=== PATIENT | female | born 1955 | race Caucasian/White ===

== ENCOUNTER → 2016-07-16 | Outpatient (CLI) | payer MEDICARE ==
--- OUTSIDE RECORDS SUMMARY | 2016-07-16 13:48 | XMS REPORT | Continuity of Care Document ---
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 Medications No medication information available. Social History No social history. Hospital Discharge Instructions No hospital discharge instructions. Plan of Care Discharge Date 03/20/16 7:02am Prescriptions See Medication Section Functional Status No functional status results. Allergies, Adverse Reactions, Alerts No allergy information available. Immunizations No immunization records. Vital Signs No known vital signs results. Results No known relevant diagnostic tests, laboratory data and/or discharge summary. Procedures No known history of procedures. Encounters Encounter Location Arrival/Admit Date Discharge/Depart Date Attending Provider Departed Clinic [facility] 03/19/16 8:25pm 03/20/16 7: 02am LALO ROONEY DO
--- NOTE | 2016-07-16 14:54 | Diagnostic Imaging Report ---
INDICATION: Restrictive lung disease and dyspnea. PA and lateral views of the chest are obtained. No previous study is available at this time for comparison. FINDINGS: Heart size and pulmonary vascularity are within normal limits. There is internal cardiac defibrillator device with battery pack in the left anterior chest wall. Linear density projected over the right heart border may be residual from previous pacemaker as well. There is no evidence of pneumothorax, consolidation or significant pleural fluid. IMPRESSION: Postoperative changes in the mediastinum without acute abnormality detected. Dictated by: Dictated on workstation # [id number]
== END ==
LOC: RAD 13:42
PROVIDERS: ATTEND Nurse Practitioner Family
DX: J98.4 Other disorders of lung (principal); G47.34 Idiopathic sleep related nonobstructive alveolar hypoventilation; R06.00 Dyspnea, unspecified
CPT/HCPCS: 71020

== ENCOUNTER → 2017-04-22 | Outpatient (CLI) | payer MEDICARE ==
[~2017-04-22] MED LIST: CEFD300C3 PO
[2017-04-22 16:05] LABS: BASOPHILS # (AUTO) 0.1 10^3/uL (0.0-0.1); BASOPHILS % (AUTO) 1 % (0-10); EOSINOPHILS # (AUTO) 0.3 10^3/uL (0.0-0.3); EOSINOPHILS % (AUTO) 2 % (0-10); LYMPHOCYTES % (AUTO) 15 % (12-44); MEAN CORPUSCULAR HEMOGLOBIN 28 PG (25-34); MEAN CORPUSCULAR HGB CONC 32 G/DL (32-36); MEAN CORPUSCULAR VOLUME 89 FL (80-99); MEAN PLATELET VOLUME 10.1 FL (7.4-10.4); MONOCYTES # (AUTO) 1.3 X 10^3 (0.0-1.0); MONOCYTES % (AUTO) 10 % (0-12); NEUTROPHILS # (AUTO) 9.9 X 10^3 (1.8-7.8); NEUTROPHILS % (AUTO) 73 % (42-75); PLATELET COUNT 231 10^3/uL (130-400); RED CELL DISTRIBUTION WIDTH 17.8 % (10.0-14.5); WHITE BLOOD COUNT 13.6 10^3/uL (4.3-11.0)
--- NOTE | 2017-04-22 16:15 | Diagnostic Imaging Report ---
PROCEDURE: CT chest without contrast. TECHNIQUE: Multiple contiguous axial images were obtained through the chest without the use of intravenous contrast. INDICATION: Dyspnea. Cough. FINDINGS: There is a very large right pleural effusion with near complete atelectasis of the right lower lobe and partial atelectasis of the right middle lobe and right upper lobe. Underlying pneumonia is possible. No definitive mass is obviously present. The effusion appears to be homogeneous and is probably simple fluid. There is no left pleural effusion. There is a small to moderate amount of right perihepatic fluid seen, however. The pulmonary artery is 5.7 cm in caliber at the central aspect of the pulmonary trunk level, probably related to pulmonary hypertension or potentially secondary to pulmonary valve stenosis. Correlate with cardiac history. There is a pacemaker with cardiac leads in place. There are pericardial calcifications noted. The heart size is mildly enlarged. There is no significant pericardial effusion. The left lung demonstrates no significant consolidation or mass. The mediastinum demonstrates no mass or significantly enlarged lymph node. No significant lymphadenopathy in the axilla is seen. The osseous structures demonstrate mild syndesmophytes in the mid thoracic spine. IMPRESSION: 1. Very large right pleural effusion is seen with significant atelectasis in the right lung. Underlying infection is possible. No obvious mass on this unenhanced exam. A followup study after thoracentesis would better evaluate the right lung, however. 2. Significant dilatation of the pulmonary trunk. 3. Small to moderate amounts of right perihepatic ascites. Dictated by: Dictated on workstation # [id number]
[2017-04-22 16:17] LABS: ABG BASE EXCESS -0.4 MMOL/L (-2.5-2.5); ABG HCO3 23 MMOL/L (23-27); ABG OXYGEN SATURATION 95 % (94-100); ABG PCO2 34 MMHG (35-45); ABG PH 7.45 (7.37-7.43); ABG PO2 66 MMHG (79-93); ABG TCO2 24.2 MMOL/L (21.0-31.0)
[2017-04-22 16:18] LABS: ALLENS TEST POSITIVE; PATIENT TEMP 98.7
[2017-04-22 16:19] LABS: CALCIUM 9.6 MG/DL (8.5-10.1); CREATININE SERUM 1.57 MG/DL (0.60-1.30); POTASSIUM 4.5 MMOL/L (3.6-5.0)
[2017-04-23 09:19] LABS: BASOPHILS # (AUTO) 0.1 10^3/uL (0.0-0.1); BASOPHILS % (AUTO) 1 % (0-10); EOSINOPHILS # (AUTO) 0.3 10^3/uL (0.0-0.3); EOSINOPHILS % (AUTO) 3 % (0-10); LYMPHOCYTES % (AUTO) 16 % (12-44); MEAN CORPUSCULAR HEMOGLOBIN 28 PG (25-34); MEAN CORPUSCULAR HGB CONC 31 G/DL (32-36); MEAN CORPUSCULAR VOLUME 89 FL (80-99); MEAN PLATELET VOLUME 10.3 FL (7.4-10.4); MONOCYTES # (AUTO) 1.1 X 10^3 (0.0-1.0); MONOCYTES % (AUTO) 9 % (0-12); NEUTROPHILS # (AUTO) 9.3 X 10^3 (1.8-7.8); NEUTROPHILS % (AUTO) 73 % (42-75); PLATELET COUNT 235 10^3/uL (130-400); RED BLOOD COUNT 4.57 10^6/uL (4.35-5.85); RED CELL DISTRIBUTION WIDTH 17.7 % (10.0-14.5); WHITE BLOOD COUNT 12.8 10^3/uL (4.3-11.0)
[2017-04-23 09:41] LABS: GLUCOSE,BODY FLUID 111 MG/DL
[2017-04-23 09:42] LABS: BODY FLUID TRIGLYCERIDES 47 MG/DL; LDH,BODY FLUID 142 U/L
== END ==
LOC: RAD 15:33
PROVIDERS: ATTEND Internal Medicine Critical Care Medicine
DX: J90 Pleural effusion, not elsewhere classified (principal); I28.8 Other diseases of pulmonary vessels
CPT/HCPCS: 36415; 71250; 80048; 82805; 83880; 85025

== ENCOUNTER → 2017-04-23 | Outpatient (CLI) | payer MEDICARE ==
[~2017-04-23] VITALS: Ht 177.8 cm; Wt 79.4 kg
[~2017-04-23] MED LIST changes: +LIDOCAINE 1% INJ 20 ML (XYLOCAINE) VIAL ONE; +LIDOCAINE 4% INJ (XYLOCAINE) 5ML AMP ONE
[2017-04-23 08:05] VITALS: BP 112/69
--- NOTE | 2017-04-23 09:30 | Pulmonary Procedures ---
Pulmonary Procedures Date of Procedure Date of Service: Apr 23, 2017 Procedure: US guided complex right thoracentesis Preop DX: pleural effusion post op DX: Same 2000cc of dark yellow fluid obtained) Complications: None After informed consent obtained US was used to localize pleural fluid. Pt has right pleural effusion. Skin was anesthetized at approximately the 10th ICS posterior axillary line with 8 cc of 1% lidocain. Thoracentesis needle was advanced through the right 10th ICS posterior axillary line. Needle was removed and catheter left in place.2000cc of yellow fluid obtained using vacuum bottles. Catheter was then removed. Pt tolerated procedure well. No complications noted. Post CT scan is pending. Fluid sent to lab for analysis LALO ROONEY DO Apr 23, 2017 09:30
[2017-04-23 09:38] LABS: ALBUMIN 3.9 GM/DL (3.2-4.5); CALCIUM 9.6 MG/DL (8.5-10.1); CREATININE SERUM 1.51 MG/DL (0.60-1.30); POTASSIUM 4.3 MMOL/L (3.6-5.0); TOTAL PROTEIN 7.7 GM/DL (6.4-8.2)
[2017-04-23 10:14] LABS: BILIRUBIN,TOTAL 0.7 MG/DL (0.1-1.0)
--- NOTE | 2017-04-23 10:48 | Diagnostic Imaging Report ---
PROCEDURE: CT chest without contrast. TECHNIQUE: Multiple contiguous axial images were obtained through the chest without the use of intravenous contrast. INDICATION: Post thoracentesis. Exam compared with 04/22/2017. There has been substantial interval reduction in right-sided pleural fluid volume with a small to moderate amount of residual fluid layering dependently to a depth of 3.7 cm. There is airspace disease in the right upper, middle and lower lobes which may reflect reexpansion, pulmonary edema or pneumonia. Some partial atelectasis adjacent to the pleural fluid much improved. No identifiable lung mass. Dilatation of the main pulmonary artery redemonstrated is roughly 5 cm transverse compared to 3.5 cm of the ascending aorta at that same level. The distal pulmonary arterial branches showed fairly abrupt tapering and underlying pulmonary hypertension would be suspected. Vascular patency cannot be addressed owing to the absence of intravascular contrast. The left lung is clear. No appreciable or measurable soft tissue nodularity of the visceral or parietal pleura in the right hemithorax. No identifiable lymphadenopathy. The visualized upper abdomen nonacute. IMPRESSION: New right lung airspace disease suggestive of reexpansion pulmonary edema. Substantial reduction in right pleural fluid volume without pneumothorax and no visualized lung mass or adenopathy. Prominence of the central pulmonary arterial branches with abrupt tapering suggest pulmonary hypertension. Dictated by: Dictated on workstation # [id number]
[2017-04-23 11:28] LABS: BASOPHILS # (AUTO) 0.1 10^3/uL (0.0-0.1); BASOPHILS % (AUTO) 1 % (0-10); EOSINOPHILS # (AUTO) 0.3 10^3/uL (0.0-0.3); EOSINOPHILS % (AUTO) 2 % (0-10); LYMPHOCYTES # (AUTO) 2.2 X 10^3 (1.0-4.0); LYMPHOCYTES % (AUTO) 16 % (12-44); MEAN CORPUSCULAR HEMOGLOBIN 28 PG (25-34); MEAN CORPUSCULAR HGB CONC 32 G/DL (32-36); MEAN CORPUSCULAR VOLUME 88 FL (80-99); MEAN PLATELET VOLUME 10.3 FL (7.4-10.4); MONOCYTES # (AUTO) 0.9 X 10^3 (0.0-1.0); MONOCYTES % (AUTO) 7 % (0-12); NEUTROPHILS # (AUTO) 10.3 X 10^3 (1.8-7.8); NEUTROPHILS % (AUTO) 75 % (42-75); PLATELET COUNT 244 10^3/uL (130-400); RED BLOOD COUNT 4.76 10^6/uL (4.35-5.85); RED CELL DISTRIBUTION WIDTH 17.8 % (10.0-14.5); WHITE BLOOD COUNT 13.8 10^3/uL (4.3-11.0)
== END | disposition home or self-care (01) ==
LOC: SDC 07:40
PROVIDERS: ATTEND Internal Medicine Critical Care Medicine
DX: J90 Pleural effusion, not elsewhere classified (principal); G47.33 Obstructive sleep apnea (adult) (pediatric); J98.4 Other disorders of lung
CPT/HCPCS: 36415; 71250; 80053; 83880; 85025

== ENCOUNTER → 2017-05-01 | Outpatient (CLI) | payer MEDICARE ==
[~2017-05-01] MED LIST changes: -LIDOCAINE 1% INJ 20 ML (XYLOCAINE) VIAL ONE; -LIDOCAINE 4% INJ (XYLOCAINE) 5ML AMP ONE
[2017-05-01 12:06] LABS: BASOPHILS # (AUTO) 0.1 10^3/uL (0.0-0.1); BASOPHILS % (AUTO) 1 % (0-10); EOSINOPHILS # (AUTO) 0.3 10^3/uL (0.0-0.3); EOSINOPHILS % (AUTO) 2 % (0-10); LYMPHOCYTES # (AUTO) 1.6 X 10^3 (1.0-4.0); LYMPHOCYTES % (AUTO) 14 % (12-44); MEAN CORPUSCULAR HEMOGLOBIN 28 PG (25-34); MEAN CORPUSCULAR HGB CONC 32 G/DL (32-36); MEAN CORPUSCULAR VOLUME 88 FL (80-99); MEAN PLATELET VOLUME 10.2 FL (7.4-10.4); MONOCYTES # (AUTO) 0.8 X 10^3 (0.0-1.0); MONOCYTES % (AUTO) 7 % (0-12); NEUTROPHILS # (AUTO) 8.8 X 10^3 (1.8-7.8); NEUTROPHILS % (AUTO) 76 % (42-75); PLATELET COUNT 191 10^3/uL (130-400); RED BLOOD COUNT 4.42 10^6/uL (4.35-5.85); RED CELL DISTRIBUTION WIDTH 17.1 % (10.0-14.5); WHITE BLOOD COUNT 11.6 10^3/uL (4.3-11.0)
[2017-05-01 12:25] LABS: ALBUMIN 3.7 GM/DL (3.2-4.5); BILIRUBIN,TOTAL 0.4 MG/DL (0.1-1.0); CALCIUM 9.6 MG/DL (8.5-10.1); CREATININE SERUM 1.64 MG/DL (0.60-1.30); POTASSIUM 4.5 MMOL/L (3.6-5.0)
[2017-05-01 12:28] LABS: ANISOCYTOSIS SLIGHT; BAND NEUTROPHILS 4 %; LYMPHOCYTES % (MANUAL) 12 %; NEUTROPHILS % (MANUAL) 81 %; POIKILOCYTOSIS SLIGHT
--- NOTE | 2017-05-01 16:57 | Diagnostic Imaging Report ---
PA and lateral views of the chest. COMPARISON: 07/16/2016. INDICATION: Restrictive lung disease. Follow-up after thoracentesis. FINDINGS: There is a large right pleural effusion with atelectasis and consolidation obscuring the mid and lower right lung. The left lung is clear. The heart size is normal. No effusion or pneumothorax. The mediastinum and gabriela appear unremarkable. Pacemaker with three cardiac leads seen. IMPRESSION: Large right pleural fusion with atelectasis and consolidation in the mid and lower right lung. Dictated by: Dictated on workstation # [id number]
== END ==
LOC: RAD 11:29
PROVIDERS: ATTEND Nurse Practitioner Family
DX: J90 Pleural effusion, not elsewhere classified (principal); J18.1 Lobar pneumonia, unspecified organism; J98.4 Other disorders of lung; Z98.890 Other specified postprocedural states
CPT/HCPCS: 36415; 71020; 80053; 83880; 85007; 85027

== ENCOUNTER 2018-10-24 14:26 | Emergency (ER) | payer MEDICARE ==
[~2018-10-24] VITALS: Ht 177.8 cm; Wt 80.7 kg
[2018-10-24 14:56] LABS: HEMATOCRIT 39 % (35-52); HEMOGLOBIN 12.9 G/DL (11.5-16.0); MEAN CORPUSCULAR HEMOGLOBIN 30 PG (25-34); MEAN CORPUSCULAR HGB CONC 33 G/DL (32-36); MEAN CORPUSCULAR VOLUME 89 FL (80-99); MEAN PLATELET VOLUME 11.3 FL (7.4-10.4); PLATELET COUNT 193 10^3/uL (130-400); RED CELL DISTRIBUTION WIDTH 17.3 % (10.0-14.5)
[2018-10-24 14:57] LABS: BASOPHILS # (AUTO) 0.1 10^3/uL (0.0-0.1); BASOPHILS % (AUTO) 1 % (0-10); EOSINOPHILS # (AUTO) 0.3 10^3/uL (0.0-0.3); EOSINOPHILS % (AUTO) 3 % (0-10); LYMPHOCYTES % (AUTO) 23 % (12-44); MONOCYTES # (AUTO) 1.4 X 10^3 (0.0-1.0); MONOCYTES % (AUTO) 11 % (0-12); NEUTROPHILS # (AUTO) 8.2 X 10^3 (1.8-7.8); NEUTROPHILS % (AUTO) 63 % (42-75)
--- NOTE | 2018-10-24 14:57 | ED Syncope ---
General Chief Complaint: Dizziness/Syncope Stated Complaint: SYNCOPE Nursing Triage Note: Brought in by EMS for a syncopal episode. Was walking around [facility] and started to feel hot and nauseous and needed to sit down. Daughter states she "went down" and they helped her to the ground. Denies hitting head. Loss of consciousness was only for a few seconds. EMS reports is diaphoretic and short of breath and in bundle branch block heart rhythm. Was given 4 mg of zofran en route. BS was 332. History of Present Illness Date Seen by Provider: Oct 24, 2018 Time Seen by Provider: 14:40 Initial Comments The patient is a 63-year-old comorbid female with a history of (per pt and family) hypertension, hyperlipidemia, history of prolonged QT with pacemaker/ICD in place, COPD with PRN reliance on supplemental oxygen at home though the patient states she has not used this for awhile, history of prior pleural effusion. Records are not available to round out this patient's medical history due to recent hospital closure. She presents with concern for acute onset of lightheadedness followed by a syncopal episode while she was ambulating down town just prior to arrival. Patient was reportedly in her normal state of health earlier today and was walking with family at the [facility] and suddenly felt hot and nauseated and then began to feel lightheaded and then per her daughter frankly passed out. She did not fall or hit or hurt any other part of her body during the episode and she was caught by her family members and lowered gently to the ground. She was immediately awake and alert afterward and there was no convulsive activity witnessed but afterwards she complained of nausea and persistent lightheadedness and was also reportedly diaphoretic when EMS arrived. Upon my evaluation the patient's vital signs are generally appropriate (2L per NC placed for comfort by EMS enroute) and she is resting comfortably although still appears somewhat sweaty and is nauseated. 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 She specifically denies fevers, vomiting, hematemesis, hematochezia, melena, cough, shortness of breath, chest pain either now or prior to onset of symptoms, abdominal pain, flank pain, back pain, dysuria or hematuria, changes in bowel habits. She is alert and oriented 4. Allergies and Home Medications Allergies Coded Allergies: amiodarone (Verified Allergy, Unknown, 10/24/18) Home Medications Cefdinir 300 Mg Capsule, 300 MG PO BID Prescribed by: ULICES LENZ on 04/23/17 1159 Patient Home Medication List Home Medication List Reviewed: Yes Review of Systems Constitutional: see HPI All Other Systems Reviewed Negative Unless Noted: Yes Past Wugsvqh-Semcpt-Xqpczw Hx Past Med/Social Hx: Reviewed Nursing Past Med/Soc Hx Patient Social History Type Used: Cigarettes Recent Foreign Travel: No Contact w/Someone Who Travel: No Recent Infectious Disease Expo: No Recent Hopitalizations: Yes ([facility] in [place], [place]) Seasonal Allergies Seasonal Allergies: No Past Medical History Hysterectomy COPD Hypertension Reproductive Disorders: No Did You Recieve Any Treatments: Yes Family Medical History Reviewed Nursing Family Hx Physical Exam Vital Signs Vital Signs - First Documented 10/24/18 14:29 Temp 97.8 Pulse 72 Resp 24 B/P (MAP) 140/56 (84) Pulse Ox 96 O2 Delivery Nasal Cannula O2 Flow Rate 2.00 Capillary Refill : Less Than 3 Seconds Height, Weight, BMI Height: 5'10.00" Weight: 178lbs. 0.0oz. 80.792146ez; 25.1 BMI Method:Stated General Appearance: No Apparent Distress This is an older female appearing nontoxic and in no acute distress. She is mildly diaphoretic upon initial evaluation. She is alert and oriented 4. Head is normocephalic and atraumatic. Neck is supple and nontender. Oropharynx is moist. Lungs are clear to auscultation at all stations. There is normal S1 and S2 without rubs or gallops and capillary refill is appropriate, less than 2 seconds globally. There is a loud systolic ejection murmur. Patient is uncertain whether this is new or not. Abdomen is soft, nontender and nondistended and there are no pulsatile masses appreciated. Skin is warm and moist and without cyanosis, clubbing or significant peripheral edema. Psychiatrically, the patient and treat appropriately affect and is alert. From a neurologic standpoint, cranial nerves II through XII are intact and there are no lateralizing deficits noted. Speech is normal. Leg which is normal. Coordination is normal. Strength is 5 out of 5 in all joints of bilateral upper and lower extremity. Sensation is intact to light touch in bilateral upper and lower extremities. Ambulation testing is deferred. Progress/Results/Core Measures Results/Orders Lab Results Laboratory Tests Test 10/24/18 14:39 10/24/18 16:10 Range/Units White Blood Count 13.0 H 4.3-11.0 10^3/uL Red Blood Count 4.32 L 4.35-5.85 10^6/uL Hemoglobin 12.9 11.5-16.0 G/DL Hematocrit 39 35-52 % Mean Corpuscular Volume 89 80-99 FL Mean Corpuscular Hemoglobin 30 25-34 PG Mean Corpuscular Hemoglobin Concent 33 32-36 G/DL Red Cell Distribution Width 17.3 H 10.0-14.5 % Platelet Count 193 130-400 10^3/uL Mean Platelet Volume 11.3 H 7.4-10.4 FL Neutrophils (%) (Auto) 63 42-75 % Lymphocytes (%) (Auto) 23 12-44 % Monocytes (%) (Auto) 11 0-12 % Eosinophils (%) (Auto) 3 0-10 % Basophils (%) (Auto) 1 0-10 % Neutrophils # (Auto) 8.2 H 1.8-7.8 X 10^3 Lymphocytes # (Auto) 3.0 1.0-4.0 X 10^3 Monocytes # (Auto) 1.4 H 0.0-1.0 X 10^3 Eosinophils # (Auto) 0.3 0.0-0.3 10^3/uL Basophils # (Auto) 0.1 0.0-0.1 10^3/uL Prothrombin Time 21.2 H 12.2-14.7 SEC INR Comment 1.8 H 0.8-1.4 Activated Partial Thromboplast Time 34 24-35 SEC Sodium Level 132 L 135-145 MMOL/L Potassium Level 5.3 H 3.6-5.0 MMOL/L Chloride Level 94 L 98-107 MMOL/L Carbon Dioxide Level 23 21-32 MMOL/L Anion Gap 15 H 5-14 MMOL/L Blood Urea Nitrogen 33 H 7-18 MG/DL Creatinine 1.83 H 0.60-1.30 MG/DL Estimat Glomerular Filtration Rate 28 BUN/Creatinine Ratio 18 Glucose Level 395 H 70-105 MG/DL Calcium Level 9.9 8.5-10.1 MG/DL Corrected Calcium 9.7 8.5-10.1 MG/DL Magnesium Level 2.0 1.8-2.4 MG/DL Total Bilirubin 1.0 0.1-1.0 MG/DL Aspartate Amino Transf (AST/SGOT) 34 5-34 U/L Alanine Aminotransferase (ALT/SGPT) 18 0-55 U/L Alkaline Phosphatase 75 40-136 U/L Troponin T 24 H <=10 NG/L Pro-B-Type Natriuretic Peptide 4621.0 H <75.0 PG/ML Total Protein 7.8 6.4-8.2 GM/DL Albumin 4.3 3.2-4.5 GM/DL My Orders Orders - SHERRY HASSAN MD Cbc With Automated Diff (10/24/18 14:45) Magnesium (10/24/18 14:45) Chest 1 View Ap/Pa Only (10/24/18 14:45) Ekg Tracing (10/24/18 14:45) Comprehensive Metabolic Panel (10/24/18 14:45) Protime With Inr (10/24/18 14:45) Partial Thromboplastin Time (10/24/18 14:45) O2 (10/24/18 14:45) Monitor-Rhythm Ecg Trace Only (10/24/18 14:45) Ed Iv/Invasive Line Start (10/24/18 14:45) Troponin T (10/24/18 14:45) Probnp Fs (10/24/18 14:45) Ua Culture If Indicated (10/24/18 14:45) Acetaminophen Tablet/Caplet (Tylenol T (10/24/18 15:00) Ondansetron Injection (Zofran Injectio (10/24/18 15:00) Insulin (Regular) Human (Humulin R (Per (10/24/18 21:00) Medications Given in ED Current Medications Medications Dose Ordered Sig/[place] Route Start Time Stop Time Status Last Admin Dose Admin Acetaminophen 975 mg ONCE ONCE PO 10/24/18 15:00 10/24/18 15:01 DC 10/24/18 15:06 975 MG Ondansetron HCl 4 mg ONCE ONCE IVP 10/24/18 15:00 10/24/18 15:01 DC 10/24/18 15:06 4 MG Vital Signs/I&O 6/1/19 6/1/19 14:29 14:29 Temp 97.8 Pulse 72 Resp 24 B/P (MAP) 140/56 (84) Pulse Ox 96 96 O2 Delivery Nasal Cannula O2 Flow Rate 2.00 2.00 Blood Pressure Mean: 84 Progress Progress Note : Time: 15:00 Progress Note Comorbid older female with a concerning syncopal episode occurring prior to arrival. Diaphoretic to some degree and nauseous during the episode and although this is improved, the symptoms are still present. No obvious acute process by initial EKG and is in a ventricularly paced rhythm. We will interrogate the patient's ICD/pacer and check labs and chest x-ray and give the rest of a liter of fluids which were initiated by EMS and will then reevaluate. Plan will minimally be for admission for observation on telemetry given comorbidities and syncopal history and presenting symptoms. Patient and family request [facility] where she follows for her subspecialty care. Update 1542: The patient is resting comfortably and vital signs remain stable. She feels much better after completing one bag of IV fluid and some Zofran for nausea and color is much better as well. She has received insulin SQ for her hyperglycemia. Workup is as above, significant for evidence of renal insufficiency with a creatinine of 1.8, uncertain chronicity but likely acute on chronic as the patient acknowledges some degree of chronic renal insufficiency in the setting of her diabetes. Potassium is very mildly elevated. Troponin T is also mildly elevated in the setting of renal insufficiency and lack of any chest pain. BNP is also significantly elevated without signs of fluid overload on chest x-ray. We are still pending results of cardiac device interrogation at this time. In discussing the situation further with the patient and her daughter, they acknowledge that she does not get out much and that she may simply have "overdone it" walking around downtown with her family. However, in the setting of significant comorbidities and concerning syncopal episode earlier, will certainly need to proceed with admission for observation on telemetry and further care. Patient requests [facility] as that is where she follows. Case is therefore discussed with and graciously accepted in transfer by Dr. Jolly at that facility. Initial ECG Impression Date: Oct 24, 2018 Initial ECG Impression Time: 15:02 Comment Ventricularly paced rhythm, no acute ST elevation or depression, rate 73, EP interpretation. Departure Impression Primary Impression: Syncope and collapse Additional Impressions: Troponin level elevated Renal insufficiency Hyperkalemia Hyperglycemia due to type 2 diabetes mellitus Disposition: 02 XFER SHT-TRM HOSP Condition: Stable Departure-Patient Inst. Referrals: SARAH PIERRE MD (PCP/Family) Primary Care Physician SHERRY HASSAN MD Oct 24, 2018 14:57
[2018-10-24] MEDS ORDERED: ONDANSETRON 4 MG/2 ML (SDV) Z0FRAN IVP ONE (15:00)
[2018-10-24] MEDS ORDERED: ACETAMINOPHEN 325 MG TABLET PO ONE (15:00)
--- NOTE | 2018-10-24 15:11 | Diagnostic Imaging Report ---
EXAMINATION: AP upright portable chest. INDICATION: Syncope. COMPARISON: Multiple priors, most recent performed on 05/01/2017. FINDINGS: Left transvenous pacemaker/ICD and leads are unchanged in position. Low lung volumes are demonstrated. The lungs are clear and the pulmonary vasculature is normal. There is mild cardiomegaly, similar in appearance to prior exams. No pneumothorax or large pleural effusion. No acute osseous abnormalities appreciated. IMPRESSION: No radiographic evidence of acute chest disease. Dictated by: Dictated on workstation # [id number]
[2018-10-24 15:20] LABS: INR 1.8 (0.8-1.4); PROTHROMBIN TIME PATIENT 21.2 SEC (12.2-14.7)
[2018-10-24 15:22] LABS: CREATININE SERUM 1.83 MG/DL (0.60-1.30); POTASSIUM 5.3 MMOL/L (3.6-5.0)
[2018-10-24 15:23] LABS: ALBUMIN 4.3 GM/DL (3.2-4.5); CALCIUM 9.9 MG/DL (8.5-10.1); TOTAL PROTEIN 7.8 GM/DL (6.4-8.2)
[2018-10-24 16:31] LABS: CLARITY,URINE SL CLOUDY; COLOR,URINE YELLOW
[2018-10-24 16:32] LABS: BACTERIA,URINE LARGE /HPF; BILIRUBIN,URINE NEGATIVE (NEGATIVE); GLUCOSE, URINE (UA) 1+ (NEGATIVE); HYALINE CASTS, URINE 25-50 /LPF; KETONES,URINE NEGATIVE (NEGATIVE); LEUKOCYTE ESTERASE ,URINE 1+ (NEGATIVE); NITRITE,URINE NEGATIVE (NEGATIVE); PROTEIN,URINE NEGATIVE (NEGATIVE); RBC,URINE 0-2 /HPF; UROBILINOGEN,URINE 0.2 MG/DL (NORMAL)
[2018-10-24] MEDS ORDERED: inSUlin (REGULAR) HUMAN 1 UNIT/0.01 ML (CHARGE PER UNIT) ONE (16:39)
[2018-10-24] MEDS ORDERED: inSUlin (REGULAR) HUMAN 1 UNIT/0.01 ML (CHARGE PER UNIT) SC SCH ×2 (16:39→21:00)
--- NOTE | 2018-10-24 17:00 | NUR ---
[facility], [facility], and [facility] EMS services were contacted to take patient transfer. All declined transfer.
[2018-10-24] MEDS ORDERED: cefTRIAXone FOR IV USE 1,000 MG in WATER (STERILE) FOR INJECTION 10 ML IV ONE (17:30)
[2018-10-24 18:19] VITALS: BP 124/57
--- NOTE | 2018-10-24 18:26 | NUR ---
[facility] EMS page to take transfer at this time. Transfer will be delayed due to weather.
== END 2018-10-24 19:13 | disposition short-term general hospital (02) ==
LOC: EDUNIT# 14:26 → ER FS 14:28
DX: R55 Syncope and collapse (principal); N28.9 Disorder of kidney and ureter, unspecified; E11.9 Type 2 diabetes mellitus without complications; E87.5 Hyperkalemia; R79.89 Other specified abnormal findings of blood chemistry; I10 Essential (primary) hypertension; E78.5 Hyperlipidemia, unspecified; J44.9 Chronic obstructive pulmonary disease, unspecified; Z99.81 Dependence on supplemental oxygen; Z88.8 Allergy status to other drugs, medicaments and biological substances; Z90.710 Acquired absence of both cervix and uterus
CPT/HCPCS: 36415; 71045; 80053; 81000; 83735; 83880; 84484; 85025; 85610; 85730; 87088; 93005; 93041; 96372; 96374; 96375

== ENCOUNTER 2019-08-18 00:20 | Emergency (ER) | payer MEDICARE ==
[~2019-08-18] VITALS: Ht 165.1 cm; Wt 57.0 kg
[2019-08-18 00:56] LABS: HEMATOCRIT 35 % (35-52); HEMOGLOBIN 10.9 G/DL (11.5-16.0); MEAN CORPUSCULAR HEMOGLOBIN 27 PG (25-34); MEAN CORPUSCULAR HGB CONC 31 G/DL (32-36); MEAN CORPUSCULAR VOLUME 87 FL (80-99); MEAN PLATELET VOLUME 10.9 FL (7.4-10.4); PLATELET COUNT 225 10^3/uL (130-400); RED CELL DISTRIBUTION WIDTH 17.4 % (10.0-14.5); WHITE BLOOD COUNT 13.5 10^3/uL (4.3-11.0)
[2019-08-18 00:57] LABS: BASOPHILS % (AUTO) 1 % (0-10); EOSINOPHILS % (AUTO) 2 % (0-10); LYMPHOCYTES % (AUTO) 9 % (12-44); MONOCYTES % (AUTO) 8 % (0-12); NEUTROPHILS % (AUTO) 79 % (42-75)
[2019-08-18 00:58] LABS: BASOPHILS # (AUTO) 0.1 10^3/uL (0.0-0.1); EOSINOPHILS # (AUTO) 0.3 10^3/uL (0.0-0.3); LYMPHOCYTES # (AUTO) 1.1 X 10^3 (1.0-4.0); MONOCYTES # (AUTO) 1.1 X 10^3 (0.0-1.0); NEUTROPHILS # (AUTO) 10.7 X 10^3 (1.8-7.8)
--- NOTE | 2019-08-18 01:01 | ED Cardiac General ---
History of Present Illness General Chief Complaint: Chest Pain Stated Complaint: CARDIC PROBLEMS Source: patient Exam Limitations: no limitations History of Present Illness Date Seen by Provider: Aug 18, 2019 Time Seen by Provider: 00:40 Initial Comments The patient is a 64-year-old female who presents for evaluation of a defibrillator discharge. She states that she had just gone to sleep when the device went off one time waking her instantly and concerning her. She arrives via EMS. She says the last week she was at [facility] because her device discharge multiple times. She was ultimately found to have a severely low potassium and was started on flecainide, digoxin, metoprolol, and Demadex. She s ays that after the single discharge this morning she is now feeling much better and has no current complaints. She states that her device was found to be functioning properly when she was at [facility]. She is alert and oriented 4, calm, and appears to be in no distress at this time. Timing/Duration: 1 hour Severity: moderate Associated Systoms: Denies Symptoms Allergies and Home Medications Allergies Coded Allergies: amiodarone (Verified Allergy, Unknown, 10/24/18) Home Medications Cefdinir 300 Mg Capsule, 300 MG PO BID Prescribed by: ULICES LENZ on 04/23/17 1159 Patient Home Medication List Home Medication List Reviewed: Yes Review of Systems Review of Systems Constitutional: no symptoms reported EENTM: No Symptoms Reported Respiratory: No Symptoms Reported Cardiovascular: See HPI Gastrointestinal: No Symptoms Reported Genitourinary: No Symptoms Reported Musculoskeletal: no symptoms reported Skin: no symptoms reported Psychiatric/Neurological: No Symptoms Reported Endocrine: No Symptoms Reported Hematologic/Lymphatic: No Symptoms Reported All Other Systems Reviewed Negative Unless Noted: Yes Past Rmccwxd-Frynbc-Ljtvlm Hx Past Med/Social Hx: Reviewed Nursing Past Med/Soc Hx Patient Social History Alcohol Use: Denies Use Recreational Drug Use: No Type Used: Cigarettes 2nd Hand Smoke Exposure: No Recent Foreign Travel: No Contact w/Someone Who Travel: No Recent Hopitalizations: Yes ([facility] in [place], [place]) Physical Abuse: No Sexual Abuse: No Mistreated: No Fear: No Seasonal Allergies Seasonal Allergies: No Past Medical History Surgeries: Yes (heart cath; lithotripsy; lillian and bso) Hysterectomy, Pacemaker Respiratory: Yes (pleural effusions) COPD Cardiac: Yes (Prolonged QT interval; CHF; carotid artery stenosis) Atrial Fibrillation, High Cholesterol, Hypertension Neurological: Yes Stroke Reproductive Disorders: No Genitourinary: No Gastrointestinal: No Musculoskeletal: No Endocrine: Yes Diabetes, Non-Insulin dep Cancer: Yes (Endometrial) Did You Recieve Any Treatments: Yes Psychosocial: No Anxiety Integumentary: No Blood Disorders: No Physical Exam Vital Signs Vital Signs - First Documented 08/18/19 08/18/19 00:48 00:49 Temp 36.4 Pulse 69 Resp 18 B/P (MAP) 113/50 (71) Pulse Ox 100 O2 Delivery Nasal Cannula O2 Flow Rate 3.00 Capillary Refill : Height, Weight, BMI Height: 5'10.00" Weight: 178lbs. 0.0oz. [id number]; 25.1 BMI Method:Stated General Appearance: No Apparent Distress, WD/WN, Anxious HEENT: PERRL/EOMI, Pharynx Normal Neck: Full Range of Motion, Non Tender, Supple Respiratory: Chest Non Tender, Lungs Clear, Normal Breath Sounds, No Accessory Muscle Use, No Respiratory Distress Cardiovascular: Regular Rate, Rhythm, Normal Peripheral Pulses, Systolic Murmur Gastrointestinal: Normal Bowel Sounds, Non Tender, Soft Extremity: Normal Capillary Refill, Normal Inspection, Non Tender, Pedal Edema Neurologic/Psychiatric: Alert, Oriented x3, Normal Mood/Affect Skin: Normal Color, Warm/Dry Progress/Results/Core Measures Results/Orders Lab Results Laboratory Tests Test 08/18/19 00:43 Range/Units White Blood Count 13.5 H 4.3-11.0 10^3/uL Red Blood Count 4.05 L 4.35-5.85 10^6/uL Hemoglobin 10.9 L 11.5-16.0 G/DL Hematocrit 35 35-52 % Mean Corpuscular Volume 87 80-99 FL Mean Corpuscular Hemoglobin 27 25-34 PG Mean Corpuscular Hemoglobin Concent 31 L 32-36 G/DL Red Cell Distribution Width 17.4 H 10.0-14.5 % Platelet Count 225 130-400 10^3/uL Mean Platelet Volume 10.9 H 7.4-10.4 FL Neutrophils (%) (Auto) 79 H 42-75 % Lymphocytes (%) (Auto) 9 L 12-44 % Monocytes (%) (Auto) 8 0-12 % Eosinophils (%) (Auto) 2 0-10 % Basophils (%) (Auto) 1 0-10 % Neutrophils # (Auto) 10.7 H 1.8-7.8 X 10^3 Lymphocytes # (Auto) 1.1 1.0-4.0 X 10^3 Monocytes # (Auto) 1.1 H 0.0-1.0 X 10^3 Eosinophils # (Auto) 0.3 0.0-0.3 10^3/uL Basophils # (Auto) 0.1 0.0-0.1 10^3/uL Sodium Level 138 135-145 MMOL/L Potassium Level 4.5 3.6-5.0 MMOL/L Chloride Level 97 L 98-107 MMOL/L Carbon Dioxide Level 28 21-32 MMOL/L Anion Gap 13 5-14 MMOL/L Blood Urea Nitrogen 24 H 7-18 MG/DL Creatinine 1.34 H 0.60-1.30 MG/DL Estimat Glomerular Filtration Rate 40 BUN/Creatinine Ratio 18 Glucose Level 168 H 70-105 MG/DL Calcium Level 8.7 8.5-10.1 MG/DL Corrected Calcium 9.7 8.5-10.1 MG/DL Total Bilirubin 0.4 0.1-1.0 MG/DL Aspartate Amino Transf (AST/SGOT) 39 H 5-34 U/L Alanine Aminotransferase (ALT/SGPT) 22 0-55 U/L Alkaline Phosphatase 107 40-136 U/L Troponin I < 0.30 <0.30 NG/ML Total Protein 6.4 6.4-8.2 GM/DL Albumin 2.8 L 3.2-4.5 GM/DL My Orders Orders - ADEN HARTLEY DO Cbc With Automated Diff (08/18/19 00:45) Chest 1 View Ap/Pa Only (08/18/19 00:45) Ekg Tracing (08/18/19 00:45) Comprehensive Metabolic Panel (08/18/19 00:45) O2 (08/18/19 00:45) Monitor-Rhythm Ecg Trace Only (08/18/19 00:45) Ed Iv/Invasive Line Start (08/18/19 00:45) Troponin I Fs (08/18/19 00:45) Vital Signs/I&O 08/18/19 3 00:48 00:49 Temp 36.4 Pulse 69 Resp 18 B/P (MAP) 113/50 (71) Pulse Ox 100 O2 Delivery Nasal Cannula Nasal Cannula O2 Flow Rate 3.00 Progress Progress Note : Progress Note @0120 - Patient updated on lab and imaging results. She is feeling much better and is asking to go home. Workup fails reveal any emergent pathology. The patient's device appears to have been working appropriately. Advised the patient to follow-up with her coordinator of genetic services in the next 1-2 days and to return to the emergency Department immediately for new or worsening symptoms. Comment @0044 - Ventricular paced rhythm, rate of 69, left axis deviation is present, no acute ischemic findings noted, no STEMI, reviewed and interpreted by myself Departure Impression Primary Impression: Defibrillator discharge Disposition: HOME, SELF-CARE Condition: Stable Departure-Patient Inst. Decision time for Depature: 01:23 Referrals: SARAH PIERRE MD (PCP/Family) Primary Care Physician Patient Instructions: Implantable Cardioverter Defibrillator Generator Change Add. Discharge Instructions: Follow-up with your coordinator of genetic services the next 1-2 days. Return to the ER for new or worsening symptoms. Continue to take your medications as prescribed. ADEN HARTLEY DO Aug 18, 2019 01:01
[2019-08-18 01:12] LABS: POTASSIUM 4.5 MMOL/L (3.6-5.0)
[2019-08-18 01:13] LABS: ALBUMIN 2.8 GM/DL (3.2-4.5); BILIRUBIN,TOTAL 0.4 MG/DL (0.1-1.0); CALCIUM 8.7 MG/DL (8.5-10.1); CREATININE SERUM 1.34 MG/DL (0.60-1.30); TOTAL PROTEIN 6.4 GM/DL (6.4-8.2)
[2019-08-18 01:31] VITALS: BP 125/62
--- NOTE | 2019-08-18 06:41 | Diagnostic Imaging Report ---
INDICATION: Chest pain. Patient reports implanted defibrillator activated one hour ago. Comparison with 10/24/2018. FINDINGS: Portable chest. The lungs are well-aerated. There are no acute infiltrates. Cardiomegaly is again noted. ICD pacer on the left with leads appearing in good position. There is no pneumothorax or pleural effusion. No bony abnormalities. IMPRESSION: Cardiomegaly with no acute changes when compared with previous examination. Dictated by: Dictated on workstation # [id number]
== END 2019-08-18 01:31 | disposition home or self-care (01) ==
LOC: EDUNIT# 00:20 → ER FS 00:38
DX: T82.198A Other mechanical complication of other cardiac electronic device, initial encounter (principal); J44.9 Chronic obstructive pulmonary disease, unspecified; I11.0 Hypertensive heart disease with heart failure; I50.9 Heart failure, unspecified; E78.00 Pure hypercholesterolemia, unspecified; I48.91 Unspecified atrial fibrillation; I65.29 Occlusion and stenosis of unspecified carotid artery; E11.9 Type 2 diabetes mellitus without complications; F41.9 Anxiety disorder, unspecified; Z85.44 Personal history of malignant neoplasm of other female genital organs
CPT/HCPCS: 36415; 71045; 80053; 84484; 85025

== ENCOUNTER → 2020-03-28 | Outpatient (CLI) | payer MEDICARE ==
--- NOTE | 2020-03-28 12:41 | Diagnostic Imaging Report ---
PROCEDURE: US Renal Bilateral. TECHNIQUE: Multiple real-time grayscale images were obtained over the kidneys in various projections bilaterally. INDICATION: Chronic kidney disease stage III. Right kidney measures 10.1 x 5.1 x 6.5 cm and the left kidney measures 10.2 x 3.9 x 5.2 cm. Cortical thickness and echogenicity appears normal. No calculi are seen. No hydronephrosis. Bladder volume is 81 mL. A right ureteral jet was not visualized. Left ureteral jet is visualized. IMPRESSION: No evidence of hydronephrosis. No acute features detected. Dictated by: Dictated on workstation # [id number]
== END ==
LOC: RAD 10:51
PROVIDERS: ATTEND Nurse Practitioner
DX: N18.32 Chronic kidney disease, stage 3b (principal)
CPT/HCPCS: 76770

== ENCOUNTER 2020-09-18 11:46 | Emergency (ER) | payer MEDICARE ==
[~2020-09-18] VITALS: Ht 177 cm; Wt 77.0 kg
[2020-09-18] MEDS ORDERED: NS IV 1000 ML 1,000 ML IV SCH (12:00)
[2020-09-18] MEDS ORDERED: ONDANSETRON 4 MG/2 ML (SDV) Z0FRAN IVP STA (12:00)
[2020-09-18] MEDS ORDERED: ASPIRIN 81 MG CHEW (CHILDREN'S ASA) PO ONE (12:00)
[2020-09-18] MEDS ORDERED: dilTIAZem DRIP PRE-MIX 125 ML IV SCH (12:00)
--- NOTE | 2020-09-18 12:04 | ED Chest Pain ---
General Chief Complaint: Chest Pain Stated Complaint: VOMITING; CHEST PAIN Source: patient, old records History of Present Illness Date Seen by Provider: Sep 18, 2020 Time Seen by Provider: 11:47 Initial Comments 65-year-old female presenting with complaints of heart racing and feeling fatigued for the last few weeks. Today she was having a pacemaker defibrillator check and started having chest pain and tightness. She also had some nausea and dry heaves. She had her heart racing worse today than the last few weeks. She has been feeling more fatigued lately as well. She felt her heart rate was getting into the 120s in the last few weeks. However today when she was here for a pacemaker/defibrillator check her heart rate was going up in the 150s. She was having the chest tightness and pressure and with the nausea and dry heaves they sent her here from the outpatient cardiology pacemaker clinic. She does state that she feels like she has been getting a little increased swelling in her legs as well. And she gets a little more short of breath with exertion. Timing/Duration: getting worse (Over the last few weeks) Severity/Quality: severe, pressure, sharp, tightness Location: substernal Radiation: other (Throughout the chest) Activities at Onset: none Prior CP/Workup: angina, cardiac cath, echocardiography ASA po CARD CHECKER: No NTG SL CARD CHECKER: No Associated Symptoms: No abdominal pain, No back pain, No diaphoresis; dizziness, edema (Increasing in the last few weeks), fatigue; No fever/chills, No headache, No heartburn; nausea/vomiting; No rash; shortness of breath; No swelling/lump in chest, No syncope; weakness (general) Allergies and Home Medications Allergies Coded Allergies: amiodarone (Verified Allergy, Unknown, 10/24/18) Home Medications Cefdinir 300 Mg Capsule, 300 MG PO BID Prescribed by: ULICES LENZ on 04/23/17 1159 Patient Home Medication List Home Medication List Reviewed: Yes Review of Systems Review of Systems Constitutional: No chills, No diaphoresis, No fever; weakness EENTM: No Symptoms Reported Respiratory: Shortness of Air Cardiovascular: See HPI Gastrointestinal: See HPI Genitourinary: No Symptoms Reported Musculoskeletal: no symptoms reported Skin: no symptoms reported Psychiatric/Neurological: Weakness (generalized) Endocrine: No Symptoms Reported Hematologic/Lymphatic: Easy Bleeding, Easy Bruising Past Vcjmewp-Kprydr-Ldfiet Hx Past Med/Social Hx: Reviewed Nursing Past Med/Soc Hx Patient Social History Type Used: Cigarettes 2nd Hand Smoke Exposure: No Recent Hopitalizations: Yes ([facility] in [place], [place]) Seasonal Allergies Seasonal Allergies: No Past Medical History Surgeries: Yes (heart cath; lithotripsy; lillian and bso) Hysterectomy, Pacemaker Respiratory: Yes (pleural effusions) COPD Cardiac: Yes (Prolonged QT interval; CHF; carotid artery stenosis) Atrial Fibrillation, High Cholesterol, Hypertension Neurological: Yes Stroke Reproductive Disorders: No Genitourinary: No Gastrointestinal: No Musculoskeletal: No Endocrine: Yes Diabetes, Non-Insulin dep Cancer: Yes (Endometrial) Did You Recieve Any Treatments: Yes Psychosocial: No Anxiety Integumentary: No Blood Disorders: No Physical Exam Vital Signs Vital Signs - First Documented Capillary Refill : Height, Weight, BMI Height: 5'10.00" Weight: 178lbs. 0.0oz. 80.852244wn; 20.00 BMI Method:Stated General Appearance: Anxious, Chronically ill, Moderate Distress HEENT: Pharynx Normal Neck: Non Tender, Supple Respiratory: Chest Non Tender, Lungs Clear, Normal Breath Sounds, No Accessory Muscle Use, No Respiratory Distress Cardiovascular: Normal Peripheral Pulses, Irregularly Irregular, Tachycardia Gastrointestinal: Normal Bowel Sounds, No Pulsatile Mass, Non Tender, Soft Rectal: Deferred Extremity: Normal Capillary Refill, No Calf Tenderness, Pedal Edema (1+ pitting BLE) Neurologic/Psychiatric: Alert, Oriented x3, regulator mechanic II-XII Norm as Tested Skin: Normal Color, Warm/Dry Critical Care Note Critical Care Total Time (minutes) 45 minutes Progress 45 minutes of critical care time was spent in direct care of the patient. This time was spent excluding separately billable procedures. Time was spent in obtaining history from patient and medical records, ordering test and reviewing results, ordering interventions and reviewing response, discussion with patient and consultants, documentation in the chart. Patient was at imminent risk of cardiovascular compromise due to her atrial fibrillation with rapid ventricular response. Her condition required immediate attention and my direct interaction and supervision to help stabilize the patient. Progress/Results/Core Measures Results/Orders Lab Results Laboratory Tests Test 09/18/20 11:57 Range/Units White Blood Count 12.2 H 4.3-11.0 10^3/uL Red Blood Count 4.83 4.35-5.85 10^6/uL Hemoglobin 13.7 11.5-16.0 G/DL Hematocrit 44 35-52 % Mean Corpuscular Volume 91 80-99 FL Mean Corpuscular Hemoglobin 28 25-34 PG Mean Corpuscular Hemoglobin Concent 31 L 32-36 G/DL Red Cell Distribution Width 19.1 H 10.0-14.5 % Platelet Count 247 130-400 10^3/uL Mean Platelet Volume 10.3 7.4-10.4 FL Immature Granulocyte % (Auto) 2 % Neutrophils (%) (Auto) 79 H 42-75 % Lymphocytes (%) (Auto) 10 L 12-44 % Monocytes (%) (Auto) 8 0-12 % Eosinophils (%) (Auto) 1 0-10 % Basophils (%) (Auto) 1 0-10 % Neutrophils # (Auto) 9.6 H 1.8-7.8 X 10^3 Lymphocytes # (Auto) 1.2 1.0-4.0 X 10^3 Monocytes # (Auto) 0.9 0.0-1.0 X 10^3 Eosinophils # (Auto) 0.2 0.0-0.3 10^3/uL Basophils # (Auto) 0.1 0.0-0.1 10^3/uL Immature Granulocyte # (Auto) 0.2 H 0.0-0.1 10^3/uL Prothrombin Time 21.0 H 12.2-14.7 SEC INR Comment 1.8 H 0.8-1.4 Activated Partial Thromboplast Time 34 24-35 SEC Sodium Level 135 135-145 MMOL/L Potassium Level 5.5 H 3.6-5.0 MMOL/L Chloride Level 97 L 98-107 MMOL/L Carbon Dioxide Level 23 21-32 MMOL/L Anion Gap 15 H 5-14 MMOL/L Blood Urea Nitrogen 47 H 7-18 MG/DL Creatinine 2.55 H 0.60-1.30 MG/DL Estimat Glomerular Filtration Rate 19 BUN/Creatinine Ratio 18 Glucose Level 301 H 70-105 MG/DL Calcium Level 9.3 8.5-10.1 MG/DL Corrected Calcium 9.9 8.5-10.1 MG/DL Magnesium Level 2.3 1.6-2.4 MG/DL Total Bilirubin 0.9 0.1-1.0 MG/DL Aspartate Amino Transf (AST/SGOT) 26 5-34 U/L Alanine Aminotransferase (ALT/SGPT) 11 0-55 U/L Alkaline Phosphatase 86 40-136 U/L Troponin I < 0.30 <0.30 NG/ML Pro-B-Type Natriuretic Peptide 27329.0 H <75.0 PG/ML Total Protein 6.3 L 6.4-8.2 GM/DL Albumin 3.3 3.2-4.5 GM/DL Lipase 65 8-78 U/L My Orders Orders - JORDAN GRIDER MD Cbc With Automated Diff (09/18/20 11:59) Magnesium (09/18/20 11:59) Chest 1 View Ap/Pa Only (09/18/20 11:59) Ekg Tracing (09/18/20 11:59) Comprehensive Metabolic Panel (09/18/20 11:59) Protime With Inr (09/18/20 11:59) Partial Thromboplastin Time (09/18/20 11:59) O2 (09/18/20 11:59) Monitor-Rhythm Ecg Trace Only (09/18/20 11:59) Aspirin Chewable Tablet (Baby Aspirin Ch (09/18/20 12:00) Ed Iv/Invasive Line Start (09/18/20 11:59) Lipase (09/18/20 11:59) Troponin I Fs (09/18/20 11:59) Probnp Fs (09/18/20 11:59) Ns Iv 1000 Ml (Sodium Chloride 0.9%) (09/18/20 12:00) Diltiazem Drip Pre-Mix (Cardizem Drip Pr (09/18/20 12:00) Diltiazem Injection (Cardizem Injection) (09/18/20 12:00) Ondansetron Injection (Zofran Injectio (09/18/20 12:00) Medications Given in ED Current Medications Medications Dose Ordered Sig/[place] Route Start Time Stop Time Status Last Admin Dose Admin Aspirin 324 mg ONCE ONCE PO 09/18/20 12:00 09/18/20 12:01 DC 09/18/20 12:15 324 MG Vital Signs/I&O 09/18/20 09/18/20 09/18/20 11:47 11:47 13:48 Temp 36.2 36.3 Pulse 142 104 Resp 24 20 B/P (MAP) 110/71 (84) 94/67 Pulse Ox 98 99 O2 Delivery Room Air Room Air Room Air Progress Progress Note #1: Progress Note Obtain electrocardiogram for her rapid heart rate, placed on cardiac telemetry monitoring to watch her heart rate and rhythm, obtain chest x-ray and basic labs. The electrocardiogram and telemetry monitoring are showing atrial fibrillation with rapid ventricular rate in the 150s. We will start diltiazem drip and if her blood pressure remains above 110 as it is now on arrival we will also give a 5 mg IV bolus of diltiazem. Otherwise we will just do the drip. The electrocardiogram does not show any ST elevation. However the atrial fibrillation with rapid ventricular rate. Is a change from her prior tracings in the system. Differential diagnosis would include atrial fibrillation with rapid ventricular rate, myocardial infarction, CHF, pneumonia, electrolyte imbalance Progress Note #2: Time: 12:36 Progress Note Chest x-ray does not show any acute infiltrate or pneumonia and no acute pleural effusion. Her cardiac telemetry monitoring continues to show atrial fibrillation with rapid ventricular response with a rate has improved into the 120s some 130s instead of the 150s. Patient states that she is feeling better as her medicines and treatments are infusing. Her CBC shows mild elevation of the white blood cell count to 12.2 with a stable hemoglobin of 13.7. Progress Note #3: Time: 13:10 Progress Note Chemistry panel came back showing that she does have elevated BUN and creatinine above her baseline. A year ago she was at a creatinine of 1.27 and today it is 2.55. Her troponin was still less than 0.3. [place] [address]. Her glucose is elevated at 301 as well. Symptomatically she is feeling better and her heart rate is much improved. However she does still require the diltiazem drip. Her blood pressure is in the 90-100 systolic range. Will contact [facility] about transfer for treatment. Since her integrity assessor and nephrology doctors are both there. Progress Note #4: Time: 13:[address] Shook called back and accepted pt for stepdown bed at [facility]. Once transfer center has a room will call back to arrange transfer. Initial ECG Impression Date: Sep 18, 2020 Initial ECG Impression Time: 11:48 Initial ECG Rate: 149 Initial ECG Rhythm: A Fib/Flutter Comment Atrial fibrillation with a heart rate of 149 bpm. PVCs are present. There is a nonspecific intraventricular conduction delay. QT interval 339 ms with a QTc interval 534 ms. There is [address] elevation. Compared to prior tracings the rapid ventricular rate is new. Diagnostic Imaging Diagonstic Imaging: Xray Plain Films/CT/US/NM/MRI: chest Comments NAME: ROD [facility] REC#: [id number] PT STATUS: REG ER : 1955 PHYSICIAN: JORDAN GRIDER MD ADMIT DATE: 09/18/20/ER FS Draft Date of Exam:09/18/20 CHEST 1 VIEW AP/PA ONLY EXAMINATION: Chest radiograph, portable AP view. DATE: 09/18/2020 12:10 PM. INDICATION: 65-year-old female, shortness of breath. COMPARISON: August 18, 2019. FINDINGS: Stable overall appearance of the cardiomediastinal silhouette. There is a left-sided cardiac assist device with leads. There is no identified pneumothorax. There is no large pleural effusion. Lung volumes are somewhat low with associated central bronchovascular crowding. There is no identified interval focal airspace consolidation. IMPRESSION: No identified interval acute cardiopulmonary abnormality. Dictated on workstation # [id number] Dict: 09/18/20 1222 Trans: 09/18/20 1224 [id number] Interpreted by: ELVIN HUANG MD Electronically signed by: Departure Impression Primary Impression: Atrial fibrillation with rapid ventricular response Additional Impressions: Elevated brain natriuretic peptide (BNP) level Acute on chronic renal insufficiency Disposition: XF SHT-TRM HOSP Condition: Stable Transfer Transfer Reason: Exceeds level of care (Needs Renal and Cardiology, Continuity of care) Time Spoke to Accepting Phy: 13:32 Transfer Progress Notes d/w Dr. Shook at [facility] and he accepted pt for transfer to the cardiac stepdown unit. Will continue diltiazem drip at 5 mg/hr Transfer Facility: [facility] Method of Transfer: EMS Departure-Patient Inst. Referrals: SARAH PIERRE MD (PCP/Family) Primary Care Physician JORDAN GRIDER MD Sep 18, 2020 12:04
[2020-09-18 12:08] LABS: BASOPHILS % (AUTO) 1 % (0-10); EOSINOPHILS % (AUTO) 1 % (0-10); HEMATOCRIT 44 % (35-52); HEMOGLOBIN 13.7 G/DL (11.5-16.0); LYMPHOCYTES % (AUTO) 10 % (12-44); MEAN CORPUSCULAR HEMOGLOBIN 28 PG (25-34); MEAN CORPUSCULAR HGB CONC 31 G/DL (32-36); MEAN CORPUSCULAR VOLUME 91 FL (80-99); MEAN PLATELET VOLUME 10.3 FL (7.4-10.4); MONOCYTES % (AUTO) 8 % (0-12); NEUTROPHILS % (AUTO) 79 % (42-75); PLATELET COUNT 247 10^3/uL (130-400); WHITE BLOOD COUNT 12.2 10^3/uL (4.3-11.0)
[2020-09-18 12:09] LABS: BASOPHILS # (AUTO) 0.1 10^3/uL (0.0-0.1); EOSINOPHILS # (AUTO) 0.2 10^3/uL (0.0-0.3); LYMPHOCYTES # (AUTO) 1.2 X 10^3 (1.0-4.0); MONOCYTES # (AUTO) 0.9 X 10^3 (0.0-1.0); NEUTROPHILS # (AUTO) 9.6 X 10^3 (1.8-7.8)
[2020-09-18 12:25] LABS: INR 1.8 (0.8-1.4)
--- NOTE | 2020-09-18 12:25 | Diagnostic Imaging Report ---
EXAMINATION: Chest radiograph, portable AP view. DATE: 09/18/2020 12:10 PM. INDICATION: 65-year-old female, shortness of breath. COMPARISON: August 18, 2019. FINDINGS: Stable overall appearance of the cardiomediastinal silhouette. There is a left-sided cardiac assist device with leads. There is no identified pneumothorax. There is no large pleural effusion. Lung volumes are somewhat low with associated central bronchovascular crowding. There is no identified interval focal airspace consolidation. IMPRESSION: No identified interval acute cardiopulmonary abnormality. Dictated by: Dictated on workstation # [id number]
[2020-09-18 12:47] LABS: POTASSIUM 5.5 MMOL/L (3.6-5.0)
[2020-09-18 12:48] LABS: ALBUMIN 3.3 GM/DL (3.2-4.5); BILIRUBIN,TOTAL 0.9 MG/DL (0.1-1.0); CALCIUM 9.3 MG/DL (8.5-10.1); CREATININE SERUM 2.55 MG/DL (0.60-1.30); MAGNESIUM 2.3 MG/DL (1.6-2.4); TOTAL PROTEIN 6.3 GM/DL (6.4-8.2)
[2020-09-18 13:48] VITALS: BP 94/67
== END 2020-09-18 13:52 | disposition short-term general hospital (02) ==
LOC: EDUNIT# 11:46 → ER FS 11:55
DX: I48.20 Chronic atrial fibrillation, unspecified (principal); R79.89 Other specified abnormal findings of blood chemistry; N28.9 Disorder of kidney and ureter, unspecified; J44.9 Chronic obstructive pulmonary disease, unspecified; I10 Essential (primary) hypertension; E11.9 Type 2 diabetes mellitus without complications; Z88.8 Allergy status to other drugs, medicaments and biological substances; Z86.73 Personal history of transient ischemic attack (TIA), and cerebral infarction without residual deficits
CPT/HCPCS: 36415; 71045; 80053; 83690; 83735; 83880; 84484; 85025; 85610; 85730; 93005; 93041